=== PATIENT | male | born 1995 | race American Indian/Alaskan Native ===

== ENCOUNTER 2021-12-19 10:59 | Emergency (ER) | payer SELFPAY ==
[2021-12-19 11:17] VITALS: BP 146/71
== END 2021-12-20 01:35 | disposition left against medical advice (07) ==
LOC: ED 10:59
DX: R22.1 Localized swelling, mass and lump, neck (principal); Z53.21 Procedure and treatment not carried out due to patient leaving prior to being seen by health care provider